=== PATIENT | male | born 1990 ===

== ENCOUNTER 2018-05-01 11:58 | Emergency (ER) | payer MEDICAID ==
[2018-05-01 12:09] VITALS: O2SAT 100
[2018-05-01] MEDS ORDERED: Sodium Chloride 0.9% 1,000 ML IV STA (12:30)
--- NOTE | 2018-05-01 12:37 | ED PDOC ---
HPI: Chest Pain Time Seen by Provider: 05/01/18 12:15 Chief Complaint (Nursing): Chest Pain Chief Complaint (Provider): Chest Pain History Per: Patient History/Exam Limitations: no limitations Onset/Duration Of Symptoms: Days (1) Additional Complaint(s): 27 years old male with history of SVT, PFO and bicuspid valve presents to ER for evaluation of nausea, vomiting and dizziness associated with left shoulder pain since last night. Patient admits to drinking alcohol last night. He denies diarr hea, bloody stools or fever. PMD: non provided Past Medical History Reviewed: Historical Data, Nursing Documentation, Vital Signs Vital Signs: Last Vital Signs Temp 98.5 F 05/01/18 12:03 Pulse 95 H 05/01/18 12:09 Resp 18 05/01/18 12:09 BP 117/80 05/01/18 12:09 Pulse Ox 100 05/01/18 12:09 - Medical History PMH: Asthma Other PMH: SVT. PFO - Surgical History Surgical History: No Surg Hx - Family History Family History: States: Unknown Family Hx - Social History Current smoker - smoking cessation education provided: Yes Alcohol: Social Drugs: Denies - Immunization History Hx Tetanus Toxoid Vaccination: No Hx Influenza Vaccination: No Hx Pneumococcal Vaccination: No - Home Medications Home Medications: Ambulatory Orders Medication Instructions Recorded Albuterol Sulfate [Albuterol 3 ml IH Q6 PRN #30 jaswant 05/11/14 Sulfate 2.5mg/3 ml 0.083%] Azithromycin [Zithromax Z-Mihai] 250 mg PO DAILY #6 tab 05/11/14 Codeine Phosphate/Promethazi 5 ml PO HS PRN #50 ml 05/11/14 [Promethazine with Codeine 10 mg/5 ml-6.25 mg/] Mask, Face [Nebulizer Aerosol Mask 1 dev INH PRN PRN #1 dev 05/11/14 Adult] Nebulizer [Compact Compressor 1 dev XX Q6 PRN #1 dev 05/11/14 Nebulizer] Ondansetron [Zofran] 4 mg PO Q8H #10 tab 05/01/18 - Allergies Allergies/Adverse Reactions: Allergies Allergy/AdvReac Type Severity Reaction Status Date / Time No Known Allergies Allergy Unverified 05/11/14 17:24 Review of Systems ROS Statement: Except As Marked, All Systems Reviewed And Found Negative Gastrointestinal: Positive for: Nausea, Vomiting. Negative for: Diarrhea Genitourinary Male: Negative for: Other (Bloody stools) Musculoskeletal: Positive for: Shoulder Pain (Left) Neurological: Positive for: Dizziness Physical Exam - Reviewed Nursing Documentation Reviewed: Yes Vital Signs Reviewed: Yes - Physical Exam Appears: Positive for: Non-toxic, No Acute Distress Head Exam: Positive for: ATRAUMATIC, NORMOCEPHALIC ENT: Positive for: Other (Dry mucous membrane) Cardiovascular/Chest: Positive for: Regular Rate, Rhythm, Tachycardia (at about 100). Negative for: Murmur Respiratory: Positive for: Normal Breath Sounds. Negative for: Wheezing Gastrointestinal/Abdominal: Positive for: Normal Exam, Soft. Negative for: Tenderness Neurologic/Psych: Positive for: Alert, Oriented (x3). Negative for: Motor/Sensory Deficits - Laboratory Results Result Diagrams: 05/01/18 12:50 05/01/18 12:50 - ECG O2 Sat by Pulse Oximetry: 100 (RA) Pulse Ox Interpretation: Normal - Progress Re-evaluation Time: 14:19 Condition: Improved (Tolerated PO fluids No vomiting or chest pain) Medical Decision Making Medical Decision Making: Time: 1230 Initial Plan: --EKG --Alcohol serum --CMP --Troponin I --CBC --NaCl 1,000 ml IV 250 mls/hr --Zofran 4 mg IVP Scribe Attestation: Documented by Dara Waller, acting as a scribe for Tamir Hilliard MD. Provider Scribe Attestation: All medical record entries made by the Scribe were at my direction and personally dictated by me. I have reviewed the chart and agree that the record accurately reflects my personal performance of the history, physical exam, medical decision making, and the department course for this patient. I have also personally directed, reviewed, and agree with the discharge instructions and disposition. Disposition - Clinical Impression Clinical Impression: Gastroenteritis - Patient ED Disposition Is Patient to be Admitted: No Counseled Patient/Family Regarding: Studies Performed, Diagnosis, Need For Followup, Rx Given - Disposition Referrals: [facility] [Outside] Disposition: Routine/Home Disposition Time: 14:20 Condition: FAIR Prescriptions: Ondansetron [Zofran] 4 mg PO Q8H #10 tab Instructions: Gastroenteritis (ED) Forms: [facility] (Lao)
[2018-05-01 13:48] LABS: BASO % 0.5 % (0.0-2.0); EOS # 0.1 K/uL (0.0-0.7); EOS % 2.5 % (0.0-4.0); HEMOGLOBIN 16.2 g/dL (12.0-18.0); LYMPH # 1.1 K/uL (1.0-4.3); LYMPH % 22.4 % (20.0-40.0); MEAN CELL VOLUME 86.7 fl (80.0-94.0); MEAN CORPUSCULAR HEMOGLOBIN 29.1 pg (27.0-31.0); MEAN CORPUSCULAR HGB CONC 33.5 g/dL (33.0-37.0); MEAN PLATELET VOLUME 8.5 fl (7.2-11.7); MONO # 0.4 K/uL (0.0-0.8); MONO % 8.2 % (0.0-10.0); NEUT # 3.4 K/uL (1.8-7.0); NEUT % 66.4 % (50.0-75.0); NRBC % 0.2 % (0.0-0.0); RBC 5.56 Mil/uL (4.40-5.90); RED CELL DISTRIBUTION WIDTH 13.2 % (11.5-14.5); WHITE BLOOD COUNT 5.1 K/uL (4.8-10.8)
[2018-05-01 13:54] LABS: ALB/GLOB RATIO 1.3 (1.0-2.1); ALBUMIN 4.5 g/dL (3.5-5.0); ALT/SGPT 41 U/L (21-72); AST/SGOT 34 U/L (17-59); BLOOD UREA NITROGEN 12 mg/dl (9-20); CALCIUM 9.6 mg/dL (8.4-10.2); GFR NON-AFRICAN AMERICAN > 60
[2018-05-01 15:23] VITALS: BP 128/72; PULSE 76; RESP 17; TEMP 98
--- NOTE | 2018-05-02 12:56 | CARD ---
APPROVED REPORT Date of service: 05/01/2018 EKG Measurement Heart [id number] <Conclusion> Normal sinus rhythm Normal ECG
== END 2018-05-01 15:17 | disposition home or self-care (01) ==
LOC: H.ER 11:58
DX: K52.9 Noninfective gastroenteritis and colitis, unspecified (principal); F17.200 Nicotine dependence, unspecified, uncomplicated; J45.909 Unspecified asthma, uncomplicated; I47.1 Supraventricular tachycardia
CPT/HCPCS: 80053; 80320; 84484; 85025; 93005; 96374; 99284; J2405; J7030

== ENCOUNTER 2018-08-17 02:00 | Emergency (ER) | payer MEDICAID ==
[2018-08-17 08:13] LABS: BLOOD UREA NITROGEN 13 mg/dl (9-20); CALCIUM 9.8 mg/dL (8.4-10.2); GFR NON-AFRICAN AMERICAN > 60
[2018-08-17 08:14] LABS: ALB/GLOB RATIO 1.5 (1.0-2.1); ALBUMIN 4.5 g/dL (3.5-5.0); ALT/SGPT 51 U/L (21-72); AST/SGOT 37 U/L (17-59)
[2018-08-17 08:19] LABS: BASO % 0.4 % (0.0-2.0); EOS # 0.2 K/uL (0.0-0.7); EOS % 2.6 % (0.0-4.0); HEMOGLOBIN 15.7 g/dL (12.0-18.0); LYMPH # 1.6 K/uL (1.0-4.3); LYMPH % 24.4 % (20.0-40.0); MEAN CELL VOLUME 88.4 fl (80.0-94.0); MEAN CORPUSCULAR HEMOGLOBIN 29.1 pg (27.0-31.0); MEAN CORPUSCULAR HGB CONC 32.9 g/dL (33.0-37.0); MEAN PLATELET VOLUME 8.5 fl (7.2-11.7); MONO # 0.7 K/uL (0.0-0.8); MONO % 10.1 % (0.0-10.0); NEUT # 4.2 K/uL (1.8-7.0); NEUT % 62.5 % (50.0-75.0); NRBC % 0.2 % (0.0-0.0); RBC 5.39 Mil/uL (4.40-5.90); WHITE BLOOD COUNT 6.6 K/uL (4.8-10.8)
--- NOTE | 2018-08-17 08:21 | ED PDOC ---
- Laboratory Results Result Diagrams: 08/17/18 02:42 08/17/18 02:42 Lab Results: Troponin I < 0.0120 ng/mL (0.00-0.120) 08/17/18 07:15 Total Bilirubin 0.4 mg/dl (0.2-1.3) 08/17/18 02:42 AST 37 U/L (17-59) 08/17/18 02:42 ALT 51 U/L (21-72) 08/17/18 02:42 Alkaline Phosphatase 67 U/L (38-126) 08/17/18 02:42 Total Protein 7.6 G/DL (6.3-8.2) 08/17/18 02:42 Albumin 4.5 g/dL (3.5-5.0) 08/17/18 02:42 Globulin 3.1 gm/dL (2.2-3.9) 08/17/18 02:42 Albumin/Globulin Ratio 1.5 (1.0-2.1) 08/17/18 02:42 Medical Decision Making Medical Decision Making: Time: 7:00 Patient was signed out to me y Dr. Ibarra pending sobriety and second troponin. 8:00 Patient is now sober and complaining of mild left and right sided anterior chest pain. Scribe Attestation: Documented by Lizy Boone, acting as a scribe for Sharona Paredes MD. Provider Scribe Attestation: All medical record entries made by the Scribe were at my direction and personally dictated by me. I have reviewed the chart and agree that the record accurately reflects my personal performance of the history, physical exam, [facility] decision making, and the department course for this patient. I have also personally directed, reviewed, and agree with the discharge instructions and disposition. Disposition - Clinical Impression Clinical Impression: Chest pain - POA Present On Arrival: None - Disposition Referrals: [facility] [Outside] Disposition: Routine/Home Disposition Time: 10:06 Condition: STABLE Instructions: Chest Pain Forms: [facility] (Malaysian)
[2018-08-17 08:28] LABS: BARBITURATES, UR NEGATIVE (NEGATIVE); BENZODIAZEPINES, UR NEGATIVE (NEGATIVE)
[2018-08-17 08:29] LABS: OPIATES, UR NEGATIVE (NEGATIVE); PHENCYCLIDINE, UR NEGATIVE (NEGATIVE)
[2018-08-17 09:06] VITALS: BMI 25.4
[2018-08-17 10:53] VITALS: BP 113/81; PULSE 72; RESP 22; TEMP 97.8; O2SAT 97
--- NOTE | 2018-08-17 11:18 | RAD ---
Date of service: 08/17/2018 HISTORY: MD ORDER COMPARISON: Comparison chest dated 05/11/2014. TECHNIQUE: Chest PA and lateral FINDINGS: LUNGS: No active pulmonary disease. PLEURA: No significant pleural effusion identified. No pneumothorax apparent. CARDIOVASCULAR: No aortic atherosclerotic calcification present. Normal cardiac size. No pulmonary vascular congestion. OSSEOUS STRUCTURES: No significant abnormalities. VISUALIZED UPPER ABDOMEN: Normal. OTHER FINDINGS: None. IMPRESSION: No active disease.
--- NOTE | 2018-08-17 20:35 | ED PDOC ---
HPI: Chest Pain Time Seen by Provider: 08/17/18 02:15 Chief Complaint (Nursing): Chest Pain Chief Complaint (Provider): chest pain History Per: Patient History/Exam Limitations: no limitations Onset/Duration Of Symptoms: Hrs (1) Current Symptoms Are (Timing): Better Additional Complaint(s): 28 y/o male history of sleep apnea, SVT, Afib, PFO, and bicuspid valve brought in by EMS for evaluation of intermittent chest pain x 1 day. Patient states prior to arrival while on the phone with brother he noticed pain in left jaw, then in midsternal chest area; states he crushed aspirin 325mg PO and called 911. Patient reports improvement of chest pain on arrival, now with left axilla pain. Denies fever, headache, dizziness, extremity numbness/weakness, shortness of breath, nausea/vomiting, abdominal pain, leg pain/swelling. Past Medical History Reviewed: Historical Data, Nursing Documentation, Vital Signs Vital Signs: Last Vital Signs Temp 97.8 F 08/17/18 10:51 Pulse 72 08/17/18 10:51 Resp 22 08/17/18 10:51 BP 113/81 08/17/18 10:51 Pulse Ox 97 08/17/18 10:51 - Medical History PMH: Asthma, Atrial Fibrillation, Cardia Arrhythmia (SVT) - Surgical History Surgical History: No Surg Hx - Family History Family History: States: Unknown Family Hx - Living Arrangements Living Arrangements: Alone - Immunization History Hx Tetanus Toxoid Vaccination: No Hx Influenza Vaccination: No Hx Pneumococcal Vaccination: No - Home Medications Home Medications: Ambulatory Orders Medication Instructions Recorded Albuterol Sulfate [Albuterol 3 ml IH Q6 PRN #30 jaswant 05/11/14 Sulfate 2.5mg/3 ml 0.083%] Azithromycin [Zithromax Z-Mihai] 250 mg PO DAILY #6 tab 05/11/14 Codeine Phosphate/Promethazi 5 ml PO HS PRN #50 ml 05/11/14 [Promethazine with Codeine 10 mg/5 ml-6.25 mg/] Mask, Face [Nebulizer Aerosol Mask 1 dev INH PRN PRN #1 dev 05/11/14 Adult] Nebulizer [Compact Compressor 1 dev XX Q6 PRN #1 dev 05/11/14 Nebulizer] Ondansetron [Zofran] 4 mg PO Q8H #10 tab 05/01/18 - Allergies Allergies/Adverse Reactions: Allergies Allergy/AdvReac Type Severity Reaction Status Date / Time No Known Allergies Allergy Unverified 05/11/14 17:24 CECILY Risk Score for UA/NSTEMI - CECILY Risk Score Age > 64: NO 3 or more CAD Risk Factors: NO Known CAD (Stenosis greater than 50%): NO Aspirin use in past 7 days: NO Severe Angina: NO EKG ST changes greater than 0.5mm: NO Positive Cardiac Marker: NO CECILY Score: 0 Risk %: 5% Review of Systems ROS Statement: Except As Marked, All Systems Reviewed And Found Negative Cardiovascular: Positive for: Chest Pain Physical Exam - Reviewed Nursing Documentation Reviewed: Yes Vital Signs Reviewed: Yes - Physical Exam Appears: Positive for: Well, Non-toxic, No Acute Distress Head Exam: Positive for: ATRAUMATIC, NORMAL INSPECTION, NORMOCEPHALIC Skin: Positive for: Normal Color Eye Exam: Positive for: Normal appearance ENT: Positive for: Normal ENT Inspection Cardiovascular/Chest: Positive for: Regular Rate, Rhythm Respiratory: Positive for: Normal Breath Sounds Gastrointestinal/Abdominal: Positive for: Normal Exam Back: Positive for: Normal Inspection Extremity: Positive for: Normal ROM Neurologic/Psych: Positive for: Alert, Oriented (x3) - Laboratory Results Result Diagrams: 08/17/18 02:42 08/17/18 02:42 Lab Results: Troponin I < 0.0120 ng/mL (0.00-0.120) 08/17/18 07:15 Total Bilirubin 0.4 mg/dl (0.2-1.3) 08/17/18 02:42 AST 37 U/L (17-59) 08/17/18 02:42 ALT 51 U/L (21-72) 08/17/18 02:42 Alkaline Phosphatase 67 U/L (38-126) 08/17/18 02:42 Total Protein 7.6 G/DL (6.3-8.2) 08/17/18 02:42 Albumin 4.5 g/dL (3.5-5.0) 08/17/18 02:42 Globulin 3.1 gm/dL (2.2-3.9) 08/17/18 02:42 Albumin/Globulin Ratio 1.5 (1.0-2.1) 08/17/18 02:42 - ECG ECG: Positive for: Viewed By Me (reviewed by ED attending) ECG Rhythm: Positive for: Sinus Rhythm O2 Sat by Pulse Oximetry: 97 - Radiology X-Ray: Viewed By Me X-Ray Interpretation: No Acute Disease - Progress ED Course And Treament: -cbc -cmp -troponin -alcohol -UDS -ekg -cxr -potline monitor Disposition - Clinical Impression Clinical Impression: Chest pain - Patient ED Disposition Is Patient to be Admitted: No - Disposition Referrals: [facility] [Outside] Disposition: Transfer of Care Disposition Time: 06:00 Condition: STABLE Instructions: Chest Pain Forms: [facility] (Grenadian) Patient Signed Over To: Pardeep Ibarra Handoff Comments: pending repeat trop
== END 2018-08-17 10:55 | disposition home or self-care (01) ==
LOC: H.ER 02:00
DX: R07.89 Other chest pain (principal)